=== PATIENT | male | born 1935 | race Caucasian/White ===

== ENCOUNTER → 2021-08-31 08:47 | Outpatient (BNVA) | payer MEDICAID, SELFPAY | PROVIDERS: PCP Internal Medicine; Referring Provider Dermatology; Visit Provider Otolaryngology | DX: Z43.0 Encounter for attention to tracheostomy (principal); Z87.891 Personal history of nicotine dependence | CPT/HCPCS: 99203 ==

== ENCOUNTER → 2021-10-05 10:42 | Outpatient (BNVA) | payer MEDICARE, MEDICAID, SELFPAY | PROVIDERS: PCP Internal Medicine; Visit Provider Otolaryngology | DX: Z87.891 Personal history of nicotine dependence (principal); Z43.0 Encounter for attention to tracheostomy | CPT/HCPCS: 99212; 99213 ==